=== PATIENT | female | born 1975 | race Caucasian/White ===

== ENCOUNTER 2016-11-17 13:55 | Emergency (ER) | payer OTHER ==
[~2016-11-17] VITALS: Ht 152.4 cm; Wt 45.7 kg
[2016-11-17 14:10] VITALS: TEMP 36.7; Ht 152.4 cm; Wt 45.7 kg
--- NOTE | 2016-11-17 14:52 | DIAGNOSTIC IMAGING REPORT ---
RIGHT ELBOW MIN 3 VIEWS ROUTINE CLINICAL HISTORY: Right elbow pain COMPARISON: None. DISCUSSION: The fat pads are not displaced. No fractures or dislocations are visualized. There are no erosive changes. IMPRESSION: Normal conventional radiographic evaluation of the right elbow. Electronically signed by: Babatunde Maretl M.D. 11/17/2016 2:50 PM Dictated Date/Time: 11/17/2016 2:49 PM
--- NOTE | 2016-11-17 15:01 | EMERGENCY ROOM VISIT NOTE ---
ED Visit Note First contact with patient: 14:18 CHIEF COMPLAINT: Right elbow pain 1 month HISTORY OF PRESENT ILLNESS: Patient is a [id number] 41-year-old white female who presents the emergency department for evaluation of right elbow pain 1 month. She denies any falls or direct trauma to the area. She has pain in the dorsal lateral aspect of the forearm that radiates down towards her wrist and up towards her upper arm. It is worse with movement. She has tried wrapping it, but essentially has not done anything else including ice, heat or take any medications. She rates her pain a 7/10. 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 She had several surgeries performed by Dr. Dowling for this. She denies any numbness or tingling. She denies any repetitive movement activities. REVIEW OF SYSTEMS: Review of systems as per HPI. All other systems reviewed were negative. At least 6 systems reviewed. PMH: Electronic medical records are reviewed and summarized as above/below. See Problem List. SOCIAL HISTORY: Patient lives at home. Smoker. PHYSICAL EXAM: Vital Signs: Reviewed nurse's notes. CONSTITUTIONAL: Patient is a pleasant, well-appearing 41-year-old white female who is awake and alert and in no acute distress. MUSCULOSKELETAL: Examination of the right upper extremity does not demonstrate any skin changes. She has a fixed flexion contracture of the right fourth and fifth fingers. The elbow is not grossly swollen or deformed on inspection. No joint effusion is palpable. She does not have any pain over the olecranon, has marked tenderness over the radial head. Flexion, extension, pronation and supination are full. The wrist is nontender to palpation. She does have increased pain at the elbow with resisted wrist extension. Distal pulses are easily palpable. Sensation light touch is intact. EMERGENCY DEPARTMENT COURSE: An X-ray of the elbow does not show any fractures or dislocations. No fluid in the joint. The patient's presentation appears consistent with a tendinitis/lateral epicondylitis. She was placed in a wrist lacer. Conservative care measures were advised. She was encouraged to take an NSAID and was given a small prescription for [place]. She was advised to follow- up with her establish orthopedic surgeon for further care and management. Differential diagnosis includes fracture, dislocation, olecranon bursitis, tendinitis, sprain, strain, among others. RIGHT ELBOW MIN 3 VIEWS ROUTINE CLINICAL HISTORY: Right elbow pain COMPARISON: None. DISCUSSION: The fat pads are not displaced. No fractures or dislocations are visualized. There are no erosive changes. IMPRESSION: Normal conventional radiographic evaluation of the right elbow. Problem List Medical Problems: (1) Bronchitis Status: Resolved (2) Cellulitis, finger Status: Resolved (3) Encounter for removal of sutures Status: Resolved (4) Generalized pain Status: Resolved (5) Kidney stone Status: Resolved (6) Kidney stones Status: Resolved (7) Laceration of left thumb Status: Resolved (8) Myalgia Status: Resolved (9) Pneumonia Status: Resolved Current/Historical Medications Scheduled PRN Hydrocodone/Acetaminophen 5MG/325MG ([place] 5MG/325MG), 1-2 TABLETS PO Q4 PRN for Pain Allergies Coded Allergies: Kiwi (Unverified Allergy, Severe, SWELLING,"THROAT CLOSES", 11/17/16) Penicillins (Verified Adverse Reaction, Mild, STOMACH UPSET, 11/17/16) Vital Signs Date Time Temp Pulse Resp B/P Pulse Ox O2 Delivery O2 Flow Rate FiO2 11/17/16 15:22 64 18 126/47 96 11/17/16 14:10 36.7 81 18 124/82 97 Room Air Departure Information Impression Primary Impression: Right elbow tendonitis Prescriptions Hydrocodone/Acetaminophen 5MG/325MG ([place] 5MG/325MG) Tab 1-2 TABLETS PO Q4 Y for Pain, #20 TAB For Initial Treatment Prov: Jessica Underwood PA 11/17/16 Referrals No Doctor, Assigned (PCP) Patient Instructions My [facility] Additional Instructions DO NOT drive, drink alcohol, operate machinery, or perform dangerous activities today. You were given medications in the ER that can affect your ability to safely function or operate a vehicle. Hydrocodone/Acetaminophen ([place]) 5/325 mg: Take 1-2 pills every four hours for breakthrough pain. Avoid alcohol, operating machinery or dangerous equipment, working on ladders or roofs, DRIVING, or situations where being under the influence may be dangerous. It is recommended to use an cbzu-czj-adytnhz stool softener such as Colace, 100mg twice daily while taking this medication to avoid constipation. Ibuprofen(Motrin, Advil) may be used for fever or pain. Use 600mg every six hours as needed. Take with food. Avoid using more than 2400mg in a 24 hour period. Do not use 2400mg per day for more than three consecutive days without physician direction. Prolonged inappropriate use can lead to stomach upset or ulcers. This medication can be taken if you need to drive, work, or perform activities which may be dangerous when taking narcotic pain medication. Ice compresses for 20 minutes at a time four times daily for 2-3 days. Use the wrist lacer as instructed. Rest and elevate your injury. Continue current medications. Return to the ER immediately for any numbness, tingling, severe pain, extreme swelling in the extremity or as needed. Follow-up with orthopedic surgery for further care and evaluation of your injury.
[2016-11-17] MEDS ORDERED: HYDR-5688 PO (15:14)
[2016-11-17 15:22] VITALS: BP 126/47; PULSE 64; O2SAT 96
== END 2016-11-17 15:18 | disposition home or self-care (01) ==
LOC: C.EDB 13:56 → C.EDD 15:18
DX: M77.8 Other enthesopathies, not elsewhere classified (principal); M24.541 Contracture, right hand; F17.200 Nicotine dependence, unspecified, uncomplicated

== ENCOUNTER 2017-04-29 11:05 | Emergency (ER) | payer OTHER ==
[~2017-04-29] VITALS: Ht 157.5 cm; Wt 43.5 kg
[~2017-04-29 11:05] MED LIST: HYDR-5688 PO
[2017-04-29 11:07] VITALS: BP 125/77; PULSE 83; TEMP 36.5; O2SAT 98; Ht 157.5 cm; Wt 43.5 kg
[2017-04-29] MEDS ORDERED: MoRPHine SULFATE 10 MG/ML CARP/VIAL IV STA (11:27)
[2017-04-29] MEDS ORDERED: KETOROLAC TROMETHAMINE 30 MG/ML VIAL IV STA (11:27)
[2017-04-29] MEDS ORDERED: HYDROmorphone INJ 1 MG/ML SYR IM ONE (12:30)
--- NOTE | 2017-04-29 12:33 | DIAGNOSTIC IMAGING REPORT ---
LUMBAR SPINE 3 VIEWS CLINICAL HISTORY: Low back pain. FINDINGS: AP, lateral, and coned-down views of the lumbar spine are correlated with abdominal CT dated 09/16/2014. The skeletal structures are well mineralized. There is no radiographic evidence of fracture or malalignment. Vertebral body height and alignment are maintained. The transverse and spinous processes are intact. Disc space narrowing is seen at L5-S1. The remaining intervertebral disc spaces are well-maintained. The visualized bony pelvis appears intact. There is a nonobstructed abdominal bowel gas pattern. A phlebolith is noted in the right hemipelvis. IMPRESSION: No acute bony abnormality is seen involving the lumbosacral spine. Electronically signed by: Roberth Lewis M.D. 04/29/2017 12:32 PM Dictated Date/Time: 04/29/2017 12:31 PM
[2017-04-29] MEDS ORDERED: HYDROmorphone INJ 0.5 MG/0.5 ML SYR IM ONE (13:00)
--- NOTE | 2017-04-29 14:29 | EMERGENCY ROOM VISIT NOTE ---
History Report prepared by Blake: Nisa Chavez Under the Supervision of: Ralph GómezO. First contact with patient: 11:13 Chief Complaint: BACK PAIN Stated Complaint: BACK PAIN History of Present Illness The patient is a 41 year old female who presents to the Emergency Room with complaints of worsening back pain beginning yesterday. The patient was shopping with her family yesterday afternoon. She bent over and when she stood up her pain started. She notes that it shot out on both sides of her lower back. No tingling or numbness going down the legs. She states that she feels weak in her legs but she has been able to walk. Movement exacerbates her pain. The patient rates her pain as 10/10 in severity. Her pain radiates into her buttocks. She states that she can't sit, stand, or move without pain. The patient denies numbness. She has a history of kidney stones but states that this feels different from her previous stones. No saddle paresthesias. He able to urinate without difficulty. No fevers. No weakness focally in legs. No history of trauma. No blood in urine. Admits to nausea but no vomiting. Has been constipated previously. Source of History: patient Onset: yesterday Position: back Symptom Intensity: 10/10 Quality: other (radiating) Timing: worsening Modifying Factors (Worsening): movement Associated Symptoms: + weakness (legs), No numbness Review of Systems See HPI for pertinent positives & negatives. A total of 10 systems reviewed and were otherwise negative. Past Medical & Surgical Medical Problems: (1) Bronchitis (2) Cellulitis, finger (3) Encounter for removal of sutures (4) Generalized pain (5) Kidney stone (6) Kidney stones (7) Laceration of left thumb (8) Myalgia (9) Pneumonia Family History FH: HTN (hypertension) FH: cancer FH: diabetes mellitus FH: heart disease FH: seizures Gallbladder disease Kidney stone Social History Smoking Status: Current Every Day Smoker Alcohol Use: occasionally Marital Status: single Occupation Status: unemployed Current/Historical Medications No Active Prescriptions or Reported Meds Allergies Coded Allergies: Kiwi (Unverified Allergy, Severe, SWELLING,"THROAT CLOSES", 04/29/17) Penicillins (Verified Adverse Reaction, Mild, STOMACH UPSET, 04/29/17) Physical Exam Vital Signs Date Time Temp Pulse Resp B/P (MAP) Pulse Ox O2 Delivery O2 Flow Rate FiO2 04/29/17 11:07 36.5 83 18 125/77 98 Room Air Physical Exam GENERAL: alert, ambulating through the room, holding lower back, well appearing , well nourished, moderate distress, non-toxic EYE EXAM: normal conjunctiva OROPHARYNX: no exudate, no erythema, lips, buccal mucosa, and tongue normal and mucous membranes are moist NECK: supple, no nuchal rigidity, no adenopathy, non-tender LUNGS: Clear to auscultation. Normal chest wall mechanics HEART: no murmurs, S1 normal and S2 normal ABDOMEN: abdomen soft, non-tender, normo-active bowel sounds, no masses, no rebound or guarding. BACK: Back is symmetrical on inspection and there is no deformity. Lower lumbar bilateral perispinal tenderness. SKIN: no rashes and no bruising UPPER EXTREMITIES: upper extremities are grossly normal. LOWER EXTREMITIES: No pitting edema. Flexion/extension hip, knee, ankle, EHL 5/ 5 bilaterally. Patellar and Achilles tendon reflexes 2/4 bilaterally. DP 2/4. Able to ambulate without difficulty. NEURO EXAM: Normal sensorium, cranial nerves II-XII grossly intact, normal speech, no gross weakness of arms. Medical Decision & Procedures ER Provider Diagnostic Interpretation: Radiology results as stated below per my review and the radiologist's interpretation: LUMBAR SPINE 3 VIEWS CLINICAL HISTORY: Low back pain. FINDINGS: AP, lateral, and coned-down views of the lumbar spine are correlated with abdominal CT dated 09/16/2014. The skeletal structures are well mineralized. There is no radiographic evidence of fracture or malalignment. Vertebral body height and alignment are maintained. The transverse and spinous processes are intact. Disc space narrowing is seen at L5-S1. The remaining intervertebral disc spaces are well-maintained. The visualized bony pelvis appears intact. There is a nonobstructed abdominal bowel gas pattern. A phlebolith is noted in the right hemipelvis. IMPRESSION: No acute bony abnormality is seen involving the lumbosacral spine. Electronically signed by: Roberth Lewis M.D. 04/29/2017 12:32 PM Dictated Date/Time: 04/29/2017 12:31 PM Medications Administered Medications (Trade) Dose Ordered Sig/Annemarie Route Start Time Stop Time Status Last Admin Dose Admin Ketorolac Tromethamine (Toradol Inj) 30 mg NOW STAT IV 04/29/17 11:27 04/29/17 11:28 DC 04/29/17 11:39 30 MG Morphine Sulfate (MoRPHine SULFATE INJ) 6 mg NOW STAT IV 04/29/17 11:27 04/29/17 11:28 DC 04/29/17 11:39 6 MG Hydromorphone HCl (Dilaudid Inj) 1 mg ONE ONCE IM 04/29/17 12:30 04/29/17 12:31 DC 04/29/17 12:47 1 MG ED Course ED COURSE: Vital signs were reviewed and showed normal vitals. The patients medical record was reviewed The above diagnostic studies were performed and reviewed. ED treatments and interventions as stated above. 1113: The patient was evaluated in room A10. A complete history and physical examination was performed. 1127: Morphine sulfate 6 mg IV, Toradol 30 mg IV 1230: Dilaudid 1 mg IM 1300: Dilaudid 0.5 mg IM 1314: The patient left the ED AMA at this time. Medical Decision Differential diagnoses includes but is not limited to lumbar radiculopathy, muscle strain, facture, cauda equina, mass, and disc herniation. Patient is a 41-year-old female who presents to ER for lower back pain. Pain started while shopping with family yesterday. She bent over and when she went to stand up pain started shooting in her lower back bilaterally. No radiation down her legs. No focal weakness. No saddle paresthesias. No fevers. Past medical history shows no previous cancer. X-rays of the lumbar spine show no obvious fracture. No fevers to suggest infection. Neuro exam intact. Nothing to suggest cauda equina. Does have a history of stones although does not appear to be consistent with a stone based on presentation and history of present illness. Denied any hematuria. Patient was given IM morphine, Toradol and Dilaudid. Following results of the x-rays had updated patient. She was agitated question whether this could be a stone. I noted with her history that it is unlikely but we can check her urine which she did give to us already. Patient was very agitated as I could not tell her for 100% certainty that this was a desk. Placed the order for the UA dip. Following this I left the room and patient left agitated. Patient was given multiple rounds of narcotics and I 'm uncertain as to why she was unsatisfied and she believes that we did nothing for her. Patient eloped. Medication Reconcilliation Current Medication List: was personally reviewed by me Blood Pressure Screening Patient's blood pressure: Normal blood pressure Impression Primary Impression: Back pain Scribe Attestation The scribe's documentation has been prepared under my direction and personally reviewed by me in its entirety. I confirm that the note above accurately reflects all work, treatment, procedures, and medical decision making performed by me. Departure Information Dispostion Against Medical Advice Prescriptions No Active Prescriptions or Reported Meds Referrals No Doctor, Assigned (PCP) Patient Instructions My [facility] Problem Qualifiers Primary Impression: Back pain Back pain location: low back pain Chronicity: unspecified Back pain laterality: bilateral Sciatica presence: without sciatica Qualified Codes: M54.5 - Low back pain
== END 2017-04-29 13:04 | disposition home or self-care (01) ==
LOC: C.EDB 11:07 → C.EDA 13:04
DX: M54.5 Low back pain (principal); Z82.49 Family history of ischemic heart disease and other diseases of the circulatory system; Z83.3 Family history of diabetes mellitus; Z82.0 Family history of epilepsy and other diseases of the nervous system; F17.200 Nicotine dependence, unspecified, uncomplicated